=== PATIENT | female | born 1965 | race Caucasian/White ===

== ENCOUNTER → 2020-10-28 | Outpatient (CLI) | payer OTHER | LOC: EXRD 09:01 | DX: R10.11 Right upper quadrant pain (principal); K76.9 Liver disease, unspecified | CPT/HCPCS: 76705 ==

== ENCOUNTER → 2022-03-25 | Outpatient (CLI) | payer OTHER | LOC: KOH-I 10:35 | DX: R10.11 Right upper quadrant pain (principal); N28.89 Other specified disorders of kidney and ureter | CPT/HCPCS: 76700 ==